=== PATIENT | female | born 1985 | race Caucasian/White ===

== ENCOUNTER 2018-08-08 00:19 | Inpatient (IN) | payer OTHER ==
[2018-08-08] MEDS ORDERED: Nalbuphine 20 MG/ML 1 ML Syringe IVPUSH PRN (13:38)
[2018-08-08] MEDS ORDERED: Ondansetron 4 MG/2 ML SDV IVPUSH PRN (13:38)
[2018-08-08] MEDS ORDERED: Sodium Chloride 0.9% 10 ML Syringe FLUSH PRN (13:38)
[2018-08-08] MEDS ORDERED: Oxytocin/Lactated Ringers 10 UNIT/1,000 ML BAG IV SCH ×2 (13:45→14:15)
[2018-08-08] MEDS ORDERED: Ampicillin 2 GM in Sodium Chloride 0.9% 100 ML IV ONE (14:30)
[2018-08-08] MEDS: Lactated Ringers 1,000 ML IV SCH ×2 (14:49→19:10)
[2018-08-08] MEDS: Ampicillin 1 GM in Sodium Chloride 0.9% 100 ML IV SCH ×2 (18:35→22:38)
--- NOTE | 2018-08-08 20:55 | PCM.LDHP ---
L&D History of Present Illness - General Date of Service: 08/08/18 Admit Problem/Dx: Patient Status Order with Admit Dx/Problem 08/08/18 13:38 Patient Status [ADT] Routine Admission Diagnosis/Problem Admission Diagnosis/Problem 08/08/18 20:50 Roopa is a 33-year-old 3 para 2001 white female is admitted for medical induction of labor for nonreassuring testing. She is 37 4/7 weeks gestational age with an SILKE of 08/25/2018. She was seen in clinic today found to have a fundal height of 34 cm was evaluated with biophysical profile which was non-reassuring. BPP done in evaluation of decreased fundal height and gestational diabetes shows a score of 6 out of 8 with 0 for breathing movements. Amniotic fluid index was visually low at 4.2 cm. Estimated weight 4 lbs. 13 oz. at 2188 g. NST however was reactive. Source of Information: Patient History Limitations: Reports: No Limitations - History of Present Illness Introduction:: Roopa is a 33-year-old 3 para 2001 white female is admitted for medical induction of labor for nonreassuring testing. She is 37 4/7 weeks gestational age with an SILKE of 08/25/2018. She was seen in clinic today found to have a fundal height of 34 cm was evaluated with biophysical profile which was non-reassuring. BPP done in evaluation of decreased fundal height and gestational diabetes shows a score of 6 out of 8 with 0 for breathing movements. Amniotic fluid index was visually low at 4.2 cm. Estimated weight 4 lbs. 13 oz. at 2188 g. NST however was reactive. Her cervix is 2 cm, 60 % effaced, soft, -3, somewhat posterior with vertex presentation. Patient underwent artificial rupture membranes and will be given Pitocin for induction. 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 SILKE 08/25/2018 placing her at 37 and 47 weeks gestational age upon admission. LMP started on 11/18/2017 was relatively certain with menses coming every month. Menarche age 12. No control being used at time of conception. Previous deliveries include the followin. Male infant born 03/23/2013 at 40 weeks gestational age after 20 hours of labor6 lbs. 0 oz. male. Child's name is Ryder Ezekiel 2. Male born 04[birth year]2016 at 39-3/7 weeks gestational age after 15.5 hours labor5 lbs. 4 oz.. course has been remarkable for gestational diabetes and patient is presently on glyburide 2.5 mg by mouth daily. With diet, activity and glyburide therapy patient's blood sugars have been within normal limits almost the entire . She declined genetic testing on 02/26/2018. She is hypothyroid and presently on thyroid replacement with a dosage of levothyroxine 75 g per day. Patient plans to breast-feed. She has a history of precipitous labors with her last . She has had small for gestational age babies in the past. testing on a weekly basis which has been generally reassuring until today. Patient was seen for her first visit on 01/29/2018 at 10-2/7 weeks. Weight at that time was 161.2. She is gained 10.2 pounds over the course of the . Has had normal fundal height growth until approximately 34-35 weeks at which time she began lagging somewhat area her vital signs been stable. Laboratory testing urine include blood type B positive. First hemoglobin was 13.5 g/dL and platelets are 242,000. Her Pap smear showed atypical squamous cells of undetermined significance with negative high- risk HPV assay. She is rubella immune. RPR is nonreactive TSH initially was 3.434 mU/liternormal. Second trimester laboratory tests showed a hemoglobin of 11.8 g/dL at which time patient was advised to start on iron therapy. Her platelets were 200,000. Her 1 hour GTT was 156. Her throughout glucose tolerance test showed a fasting blood sugar of 100. Her 1 hour glucose was 217. 2 hour glucose was 204 and 3 hour glucose is 192. Patient's group B strep status was tested todayresults are pending. Allergies none Medications: 1. Glyburide 2.5 mg tablets at bedtime 2. Levothyroxine sodium 75 g daily 3. Calcium 500 mg daily 4. Folic acid 1 mg daily. 5. tabs 1 daily 6. Vitamin D3 1000 units 1 tablet daily Past medical history: 1. Normal spontaneous vaginal delivery 2 2. Hypothyroidism on medication replacement Past surgical history: 1. [place] teeth extraction 2. Tonsillectomy. Family history: No genetic abnormalities noted. Mother and father are alive and well. No anesthesia, bleeding, blood clotting or other -related problems noted in the family. Social history: Patient is , is Elijah. She does not use any significant use of alcohol, drugs or tobacco. 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 They live in the [facility]. Review of systems: In general patient has no complaints. Patient reports good activity. No contractions noted. Skin: Negative Lungs: No infectious symptoms or shortness of breath Cardiovascular: No chest pain or exercise intolerance Breasts: No lumps, changes in size, pain, dimpling, discharge or axillary or supraclavicular concerns. GI: Negative : Negative Musculoskeletal: Negative Neurological: Negative In general the patient is well-developed, well-nourished, pleasant female of stated age in no acute distress. Skin is warm dry without lesions. HEENT, neck and back within normal limits. Lungs are clear with good breath sounds in all lung galindo. Cardiovascular exam shows regular and rhythm without murmurs. Rest exam deferred having been done at first visit found to be normal and is not repeated at this time. Abdomen is gravid with fundal height in clinic at 34 cm. Baby in vertex presentation by Slade maneuvers. Genital exam per digital evaluation as described above. Extremities and neurological exam are grossly within normal limits. 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: Endocrine/Metabolic History: Reports: Diabetes, Gestational, Hypothyroidism - Past Surgical History HEENT Surgical History: Reports: Adenoidectomy, Oral Surgery, Tonsillectomy Other HEENT Surgeries/Procedures: tooth implant Social & Family History - Family History Family Medical History: Noncontributory - Tobacco Use Smoking Status *Q: Never Smoker Second Hand Smoke Exposure: No - Caffeine Use Caffeine Use: Reports: None - Recreational Drug Use Recreational Drug Use: No H&P Review of Systems - Review of Systems: Review Of Systems: See Below L&D Exam - Exam Exam: See Below - Vital Signs Vital Signs: Last Vital Signs Temp 37.0 C 08/08/18 13:38 Pulse 79 08/08/18 13:38 Resp 18 08/08/18 13:38 BP 137/85 08/08/18 13:38 Pulse Ox Weight: 72.575 kg - Patient Data Lab Results Last 24 hrs: Laboratory Results - last 24 hr 08/08/18 Range/Units 14:05 WBC 11.29 H (3.98-10.04) K/mm3 RBC 4.16 (3.98-5.22) M/mm3 Hgb 12.6 (11.2-15.7) gm/L Hct 37.3 (34.1-44.9) % MCV 89.7 (79.4-94.8) fl MCH 30.3 (25.6-32.2) pg MCHC 33.8 (32.2-35.5) g/dl RDW Std Deviation 44.3 (36.4-46.3) fL Plt Count 207 (182-369) K/mm3 MPV 9.5 (9.4-12.3) fl Neut % (Auto) 77.6 H (34.0-71.1) % Lymph % (Auto) 15.4 L (19.3-51.7) % [place] % (Auto) 6.0 (4.7-12.5) % Eos % (Auto) 0.5 L (0.7-5.8) Baso % (Auto) 0.1 (0.1-1.2) % Neut # (Auto) 8.75 H (1.56-6.13) K/mm3 Lymph # (Auto) 1.74 (1.18-3.74) K/mm3 [place] # (Auto) 0.68 H (0.24-0.36) K/mm3 Eos # (Auto) 0.06 (0.04-0.36) K/mm3 Baso # (Auto) 0.01 (0.01-0.08) K/mm3 Result Diagrams: 08/08/18 14:05 Problem List Initiated/Reviewed/Updated: Yes Orders Last 24hrs: Active Orders 24 hr Category Date Time Status Patient Status [ADT] Routine ADT 08/08/18 13:38 Active Activity as Tolerated [RC] PFP Care 08/08/18 13:38 Active Communication Order [RC] ASDIRECTED Care 08/08/18 13:38 Active Heart Tones [RC] ASDIRECTED Care 08/08/18 13:38 Active Non Stress Test [RC] PER UNIT ROUTINE Care 08/08/18 13:38 Active Notify Provider [RC] PFP Care 08/08/18 13:38 Active Notify Provider [RC] PRN Care 08/08/18 13:38 Active Peripheral IV Care [RC] . DIRECTED Care 08/08/18 13:38 Active Pump Management, Intrathecal [RC] ASDIRECTED Care 08/08/18 13:38 Active Urinary Catheter Assessment [RC] ASDIRECTED Care 08/08/18 13:38 Active Vital Signs [RC] PER UNIT ROUTINE Care 08/08/18 13:38 Active Regular Diet [DIET] Diet 08/08/18 Lunch Active RAPID PLASMA REAGIN,RPR [CHEM] Routine Lab 08/08/18 14:05 Received Ampicillin 1 gm Med 08/08/18 18:30 Active Sodium Chloride 0.9% [Normal Saline] 100 ml IV Q4H Lactated Ringers [Ringers, Lactated] 1,000 ml Med 08/08/18 13:45 Active IV ASDIRECTED Nalbuphine [Nubain] Med 08/08/18 13:38 Active 10 mg IVPUSH Q2H PRN Ondansetron [Zofran] Med 08/08/18 13:38 Active 4 mg IVPUSH Q4H PRN Oxytocin/Lactated Ringers [Pitocin in LR 10 Units/1,000 Med 08/08/18 13:45 Active ML] 10 unit in 1,000 ml IV .CONTINUOUS Oxytocin/Lactated Ringers [Pitocin in LR 10 Units/1,000 Med 08/08/18 14:15 Active ML] 10 unit in 1,000 ml IV TITRATE Sodium Chloride 0.9% [Saline Flush] Med 08/08/18 13:38 Active 10 ml FLUSH ASDIRECTED PRN Electronic Heart Tones Ext w TOCO [WOMSER] Oth 08/08/18 13:38 Ordered Routine Electronic Heart Tones Internal [WOMSER] Per Unit Oth 08/08/18 13:38 Ordered Routine Peripheral IV Insertion Adult [OM.PC] Routine Oth 08/08/18 13:38 Ordered Resuscitation Status Routine Resus Stat 08/08/18 13:38 Ordered Medication Orders Lactated Ringer's (Ringers, Lactated) 1,000 mls @ 100 mls/hr IV ASDIRECTED CELI Last Admin: 08/08/18 19:10 Dose: 100 mls/hr Infusion: 08/08/18 19:10 Dose: 100 mls/hr Admin: 08/08/18 14:49 Dose: 100 mls/hr Oxytocin/Lactated Ringer's (Pitocin In Lr 10 Units/1,000 Ml) 10 unit in 1,000 mls @ 500 mls/hr IV .CONTINUOUS CELI Ampicillin Sodium 1 gm/ Sodium (Chloride) 100 mls @ 200 mls/hr IV Q4H CELI Last Admin: 08/08/18 18:35 Dose: 200 mls/hr Oxytocin/Lactated Ringer's (Pitocin In Lr 10 Units/1,000 Ml) 10 unit in 1,000 mls @ 12 mls/hr IV TITRATE CELI; Protocol Last Titration: 08/08/18 16:50 Dose: 0 munits/min, 0 mls/hr Admin: 08/08/18 14:49 Dose: 2 munits/min, 12 mls/hr Nalbuphine HCl (Nubain) 10 mg IVPUSH Q2H PRN PRN Reason: pain Ondansetron HCl (Zofran) 4 mg IVPUSH Q4H PRN PRN Reason: Nausea/Vomiting Sodium Chloride (Saline Flush) 10 ml FLUSH ASDIRECTED PRN PRN Reason: Keep Vein Open Assessment/Plan Comment:: 1. 37-4/7 week intrauterine pregnancyHistory of gestational diabetes now with apparent growth restriction, decreased amniotic fluid index and nonreassuring testing admitted for medical induction of labor 2. Gestational diabetesunder good control with glyburide therapy and diet. 3. RPR nonreactive course 4. Patient plans to breast-feed 5. Patient is a centering patient 6. Patient desires epidural in labor for analgesia Plan: 1. Anticipate normal spontaneous vaginal delivery. Will monitor for bearable decelerations and heart tone abnormalities because of decreased amniotic fluid volume 2. RPR for screening upon admission and CBC upon admission patient would like to have an epidural. 3. Support breast-feeding decision 4. Inform pediatrics of patient's medical induction indication.
[2018-08-09] MEDS ORDERED: Benzocaine/Menthol 20%-0.5% Spray 56 GM Canister TOP PRN (00:36)
[2018-08-09] MEDS ORDERED: Acetaminophen 325 MG Tab PO PRN (00:36)
[2018-08-09] MEDS ORDERED: Lanolin 100% Cream 7 GM Tube TOP PRN (00:36)
[2018-08-09] MEDS ORDERED: Witch Hazel Medicated Pads 40/Jar TOP PRN (00:36)
--- NOTE | 2018-08-09 00:47 | PCM.SN ---
- Free Text/Narrative Note: Delivery note: Roopa is a 33-year-old 3 now para 3003 white female at 37-5/7 weeks gestational age with an SILKE of 08/25/2018 who was admitted on the afternoon of 08/08/2018 for nonreassuring testing consistent of a biophysical profile which had 2 points off for no breathing movements. Amniotic fluid index was decreased. Her final score was 6/10 but has been weight was 4 lbs. 12 oz.less than optimal. Patient has a history of gestational diabetes well controlled with diet, glyburide and activity. She has a history of small babies with preceding pregnancies. Decision was made to proceed with medical induction of labor. This was started with artificial rupture membranes and Pitocin. Patient made steady progress to 5 cm and then very rapid progress to complete. At approximately 0015 hours on 08/09/2018 patient became complete and felt very pushy. She pushed for 1 contraction delivered a viable, yun, male in a left occiput anterior position over an intact perineum at 0019 hours. Baby weighed 2110 g (4 pounds 10.4 ounces), had Apgars of 8 and 9, a length of 18-1/ 2 inches. The baby was placed on mom's abdomen. Nuchal cord 1 was loose and was reduced over the baby's body. The cord was allowed to pulsate 1 minute and then was clamped 2 and cut by the baby's father Elijah. The umbilical cord had 3 vessels. Cord blood was obtained. The placenta delivered at 0022 hours on 08/09/2018 in a Piper presentation, was small but appeared intact and complete. It was discarded per patient desire. The perineum was found to be intact and no vaginal lacerations were noted. Pitocin had been started immediately after delivery of the baby to facilitate increase in uterine tone and decrease potential for bleeding. Assessment blood loss was 100 mL. Patient plans to breast-feed. Condition: Good.
[2018-08-09] MEDS ORDERED: Levothyroxine 75 MCG Tab PO ONE (01:09)
[2018-08-09] MEDS: Levothyroxine 75 MCG Tab PO SCH (06:21)
[2018-08-09] MEDS: Ibuprofen 600 MG Tab PO PRN ×3 (06:21→20:16)
[2018-08-09] MEDS ORDERED: Levothyroxine 75 MCG Tab PO SCH (09:00)
[2018-08-10] MEDS: Levothyroxine 75 MCG Tab PO SCH (06:46)
[2018-08-10 08:46] VITALS: BP 118/90
--- NOTE | 2018-08-10 12:31 | PCM.DCSUM1 ---
Discharge Summary - Hospital Course Free Text/Narrative:: Roopa is a 33-year-old 3 para 2003 white female is admitted on 2018 for medical induction of labor for nonreassuring testing. She is 37 4/7 weeks gestational age with an SILKE of 08/25/2018. She was seen in clinic on the day of admission and found to have a fundal height of 34 cm was evaluated with biophysical profile which was non-reassuring. BPP done in evaluation of decreased fundal height and gestational diabetes shows a score of 6 out of 8 with 0 for breathing movements. Amniotic fluid index was visually low at 4.2 cm. Estimated weight 4 lbs. 13 oz. at 2188 g. NST however was reactive. Patient also has a history of gestational diabetes well controlled with diet, glyburide and activity. She has a history of small babies with preceding pregnancies. Decision was made to proceed with medical induction of labor. This was started with artificial rupture membranes and Pitocin. Patient made steady progress to 5 cm and then very rapid progress to complete. At approximately 0015 hours on 08/09/2018 patient became complete and felt very pushy. She pushed for 1 contraction delivered a viable, yun, male infant in a left occiput anterior position over an intact perineum at 0019 hours. Baby weighed 2110 g (4 pounds 10.4 ounces), had Apgars of 8 and 9, a length of 18-1/ 2 inches. The baby was placed on mom's abdomen. Nuchal cord 1 was loose and was reduced over the baby's body. The cord was allowed to pulsate 1 minute and then was clamped 2 and cut by the baby's father Elijah. The umbilical cord had 3 vessels. Cord blood was obtained. The placenta delivered at 0022 hours on 08/09/2018 in a Piper presentation, was small but appeared intact and complete. It was discarded per patient desire. The perineum was found to be intact and no vaginal lacerations were noted. Pitocin had been started immediately after delivery of the baby to facilitate increase in uterine tone and decrease potential for bleeding. Assessment blood loss was 100 mL. Patient plans to breast-feed. Plan she is doing well. She is pumping and nursing well. She is desiring discharge home. Diagnosis: Stroke: No - Discharge Data Discharge Date: 08/10/18 Discharge Disposition: Home, Self-Care 01 Condition: Good - Patient Instructions Diet: Regular Diet as Tolerated (Diabetic diet/constant calorie diet as recommended) Activity: As Tolerated (No intercourse or tampons until bleeding resolves) Driving: May Drive Today Showering/Bathing: May Shower (May take a bath) Notify Provider of: Fever, Increased Pain, Swelling and Redness, Nausea and/or Vomiting - Discharge Plan Home Medications: Home Meds Vit Calc,Iron,Folic [ Vitamins] 1 tab PO DAILY 04/23/16 [ History] Levothyroxine 75 mcg PO DAILY 08/08/18 [History] Acetaminophen [Tylenol] 650 mg PO Q4H PRN tablet 08/10/18 [Rx] Ibuprofen [Motrin] 600 mg PO Q4H PRN tablet 08/10/18 [Rx] Referrals: Perry Fernandez MD [Primary Care Provider] - (Return to clinicDr. Fernandez3 days and again in 2 weeks.) - Discharge Summary/Plan Comment DC Time >30 min.: No Discharge Summary/Plan Comment: Discharge instructions: 1. Discharge home 2. Diet, activity and follow-up discussed with patient. Recommend nursing diet with increased calories and calcium. 3. Precautions given concern increased pain, bleeding, temperature, signs/ symptoms of DVT/PE. 4. Medications per home medication was printed, discussed with and given to the patient. 5. Return to clinic-Dr. Fernandez[facility] in 3 days and again in 2 weeks. Diagnosis: 1. Term -delivered 2. Gestational diabetes 3. Nonreassuring testing with resultant induction of labor. Condition: Good - Patient Data Vitals - Most Recent: Last Vital Signs Temp 36.3 C 08/10/18 07:34 Pulse 60 08/10/18 07:33 Resp 24 H 08/10/18 07:33 BP 118/90 08/10/18 07:33 Pulse Ox 97 08/10/18 07:33 Weight - Most Recent: 72.575 kg I&O - Last 24 hours: Intake & Output 08/09/18 08/10/18 08/10/18 22:59 06:59 14:59 Intake Total 300 Balance 300 Med Orders - Current: Current Medications Acetaminophen (Tylenol) 650 mg PO Q4H PRN PRN Reason: mild pain or fever Benzocaine/Menthol (Dermoplast Pain Relief [place]) 0 gm TOP ASDIRECTED PRN PRN Reason: Perineal Comfort Measure Emollient Ointment (Lansinoh Hpa) 0 gm TOP ASDIRECTED PRN PRN Reason: Sore Nipples Lactated Ringer's (Ringers, Lactated) 1,000 mls @ 100 mls/hr IV ASDIRECTED CELI Last Admin: 08/08/18 19:10 Dose: 100 mls/hr Oxytocin/Lactated Ringer's (Pitocin In Lr 10 Units/1,000 Ml) 10 unit in 1,000 mls @ 500 mls/hr IV .CONTINUOUS [facility] Ampicillin Sodium 1 gm/ Sodium (Chloride) 100 mls @ 200 mls/hr IV Q4H [facility] Last Admin: 08/08/18 22:38 Dose: 200 mls/hr Oxytocin/Lactated Ringer's (Pitocin In Lr 10 Units/1,000 Ml) 10 unit in 1,000 mls @ 12 mls/hr IV TITRATE CELI; Protocol Last Titration: 08/08/18 22:15 Dose: 4 munits/min, 24 mls/hr Ibuprofen (Motrin) 600 mg PO Q4H PRN PRN Reason: Mild pain or fever Last Admin: 08/09/18 20:16 Dose: 600 mg Levothyroxine Sodium (Levothyroxine) 75 mcg PO ACBREAKFAST [facility] Last Admin: 08/10/18 06:46 Dose: 75 mcg Nalbuphine HCl (Nubain) 10 mg IVPUSH Q2H PRN PRN Reason: pain Ondansetron HCl (Zofran) 4 mg IVPUSH Q4H PRN PRN Reason: Nausea/Vomiting Sodium Chloride (Saline Flush) 10 ml FLUSH ASDIRECTED PRN PRN Reason: Keep Vein Open Witch Violeta (Tucks) 1 pad TOP ASDIRECTED PRN PRN Reason: Pain Discontinued Medications Ampicillin Sodium 2 gm/ Sodium (Chloride) 100 mls @ 200 mls/hr IV ONETIME ONE Stop: 08/08/18 14:59 Last Admin: 08/08/18 14:48 Dose: 200 mls/hr Levothyroxine Sodium (Levothyroxine) 75,000 mcg PO DAILY [facility]
== END 2018-08-10 13:45 | disposition home or self-care (01) | DRG 807 ==
LOC: JD.OB 00:19 → OBSVTOIN 08-09 00:19 → JD.OB 08-09 00:20
PROVIDERS: ADMIT Obstetrics & Gynecology; ATTEND Obstetrics & Gynecology
PROC: 10E0XZZ Delivery of Products of Conception, External Approach (ICD-10-PCS; principal; 2018-08-09)
PROC: 3E033VJ Introduction of Other Hormone into Peripheral Vein, Percutaneous Approach (ICD-10-PCS; 2018-08-09)
PROC: 10907ZC Drainage of Amniotic Fluid, Therapeutic from Products of Conception, Via Natural or Artificial Opening (ICD-10-PCS; 2018-08-09)
DX: O24.420 Gestational diabetes mellitus in childbirth, diet controlled (principal); O99.284 Endocrine, nutritional and metabolic diseases complicating childbirth; Z3A.37 37 weeks gestation of pregnancy; O69.81X0 Labor and delivery complicated by cord around neck, without compression, not applicable or unspecified; E03.9 Hypothyroidism, unspecified; Z37.0 Single live birth
CPT/HCPCS: 36415; 59025; 59409; 85025; 86592; A9270-GY; J0290; J2590; J7030; J7120